=== PATIENT | female | born 1965 | race Caucasian/White ===

== ENCOUNTER → 2020-05-22 | Day surgery (SDC) | payer OTHER ==
[~2020-05-22] MED LIST: FENTANYL CITRATE/PF 100MCG/2 ML INJ ONE; LIDOCAINE HCL 2% LOCAL INJ 5 ML SDV VIAL INJ ONE; METOCLOPRAMIDE HCL 10 MG/2ML VIAL ONE; MIDAZOLAM HCL 2 MG/2 ML VIAL ONE; NATURAL ESTROGEN PO; PANTOPRAZOLE 40 MG 10ML VIAL ONE; PROPOFOL IV EMULSION 10 MG/ML 20 ML VIAL ONE
[2020-05-22 08:45] VITALS: BP 126/80
== END | disposition home or self-care (01) ==
LOC: OR 06:08
PROVIDERS: ATTEND Internal Medicine Gastroenterology
DX: K29.70 Gastritis, unspecified, without bleeding (principal); K22.70 Barrett's esophagus without dysplasia; K44.9 Diaphragmatic hernia without obstruction or gangrene; K21.9 Gastro-esophageal reflux disease without esophagitis; R03.0 Elevated blood-pressure reading, without diagnosis of hypertension; Z01.810 Encounter for preprocedural cardiovascular examination; Z01.812 Encounter for preprocedural laboratory examination; Z20.828 Contact with and (suspected) exposure to other viral communicable diseases; Z68.29 Body mass index [BMI] 29.0-29.9, adult; Z53.20 Procedure and treatment not carried out because of patient's decision for unspecified reasons
CPT/HCPCS: 43239; 93005; C9113; J2001; J2250; J2704; J2765; J3010; U0002

== ENCOUNTER → 2020-07-25 | Day surgery (SDC) | payer OTHER ==
[~2020-07-25] MED LIST changes: -FENTANYL CITRATE/PF 100MCG/2 ML INJ ONE; +GINSENG100 MG; -METOCLOPRAMIDE HCL 10 MG/2ML VIAL ONE; -MIDAZOLAM HCL 2 MG/2 ML VIAL ONE; +OMEPRAZOLE40 MG PO; -PANTOPRAZOLE 40 MG 10ML VIAL ONE
[2020-07-25 12:55] VITALS: BP 111/72
== END | disposition home or self-care (01) ==
LOC: OR 10:17
PROVIDERS: ATTEND Internal Medicine Gastroenterology
DX: K29.70 Gastritis, unspecified, without bleeding (principal); K22.70 Barrett's esophagus without dysplasia; K21.00 Gastro-esophageal reflux disease with esophagitis, without bleeding; K44.9 Diaphragmatic hernia without obstruction or gangrene; R00.1 Bradycardia, unspecified; Z01.810 Encounter for preprocedural cardiovascular examination; Z01.812 Encounter for preprocedural laboratory examination; Z20.822 Contact with and (suspected) exposure to COVID-19; Z87.891 Personal history of nicotine dependence
CPT/HCPCS: 43239; 93005; J2001; J2704; U0002